=== PATIENT | female | born 1960 | race Caucasian/White ===

== ENCOUNTER 2019-08-28 10:16 | Outpatient (CLI) | payer OTHER, SELFPAY ==
--- NOTE | 2019-08-28 11:15 | NEURO_ITS ---
Patient Number: [id number] Impression: # Complains of paresthesia of right forearm. # Mild right Carpal Tunnel Syndrome. # No ulnar neuropathy. # Normal needle/EMG exam. Nerve Conduction Studies Anti Sensory Summary Table Stim Site NR Peak (ms) P-T Amp (?V) Site1 Site2 Delta-P (ms) Dist (cm) Mj (m/s) Right Median Anti Sensory (2-3nd Digit) Wrist 3.5 47.9 Wrist 2-3nd Digit 3.5 14.0 40 Wrist 3.5 52.7 Wrist 2-3nd Digit 3.5 14.0 40 Right Radial Anti Sensory (Base 1st Digit) Wrist 2.7 17.8 Wrist Base 1st Digit 2.7 0.0 Right Ulnar Anti Sensory (5th Digit) Wrist 2.8 43.3 Wrist 5th Digit 2.8 14.0 50 Motor Summary Table Stim Site NR Onset (ms) O-P Amp (mV) Site1 Site2 Delta-0 (ms) Dist (cm) Mj (m/s) Right Median Motor (Abd Poll Brev) Wrist 3.6 3.2 Elbow Wrist 5.1 27.0 53 Elbow 8.7 1.7 Right Ulnar Motor (Abd Dig Minimi) Wrist 2.6 6.6 A Elbow Wrist 5.2 29.0 56 A Elbow 7.8 5.7 F Wave Studies NR F-Lat (ms) L-R F-Lat (ms) Right Median (Mrkrs) (Abd Poll Brev) 28.01 Right Ulnar (Mrkrs) (Abd Dig Min) 28.50 EMG Side Muscle Nerve Root Ins Act Fibs Amp Dur Recrt Comment Right 1stDorInt Ulnar C8-T1 Nml Nml Nml Nml Nml Right Ext Indicis Radial (Post Int) C7-8 Nml Nml Nml Nml Nml Right Ext Digitorum Radial (Post Int) C7-8 Nml Nml Nml Nml Nml Right BrachioRad Radial C5-6 Nml Nml Nml Nml Nml Right PronatorTeres Median C6-7 Nml Nml Nml Nml Nml Right Abd Poll Brev Median C8-T1 Nml Nml Nml Nml Nml MTDD
== END 2019-08-28 10:17 | disposition home or self-care (01) ==
PROVIDERS: PCP Family Medicine Adolescent Medicine; Visit Provider Family Medicine Adolescent Medicine
DX: G56.01 Carpal tunnel syndrome, right upper limb (principal)
CPT/HCPCS: 95886; 95909

== ENCOUNTER → 2020-04-17 14:17 | Outpatient (CLI) | payer OTHER, SELFPAY ==
--- NOTE | ~2020-04-17 | MM_ITS ---
EXAMINATION: MM screening [facility] BI w maximo HISTORY: Screening mammogram TECHNIQUE: Craniocaudal and mediolateral oblique 3-D tomosynthesis images were obtained and synthetic 2-D images were generated. CAD analysis was submitted and interpreted. COMPARISON: 06/01/2012 diagnostic right mammogram 05/20/2012, 04/29/2011 bilateral digital screening mammogram examinations BREAST PARENCHYMAL COMPOSITION: There are scattered areas of fibroglandular density. FINDINGS: Bilateral circumscribed low-density opacities consistent with intramammary lymph nodes. Scattered bilateral occasional benign calcifications. There is no evidence of suspicious mass, calcif ication, or architectural distortion to suggest malignancy in either breast. There has been no suspic ious interval change. IMPRESSION: 1. No mammographic evidence of malignancy. 2. Recommend routine screening mammography in one year. BI-RADS Category 2: Benign finding(s). Reviewed, dictated and finalized at location B. NEY SUPERVISOR BRICK
--- NOTE | ~2020-04-17 | DEXA_ITS ---
Bone Density Report Name: Jazlyn Willams Age: 59 Sex: Female Ethnicity: White Date of : 1960 Indication: postmenopausal; screening for osteoporosis; height loss; hysterectomy; Referring Provider: DAVID TODD Study: Bone densitometry was performed. Exam Date: April 17, 2020 Accession number: [id number] Bone Density: Region BMD T-score Z-score Classification AP Spine (L2, L3, L4) 1.584 4.6 6.1 Normal Femoral Neck (Left) 0.805 -0.4 0.9 Normal Total Hip (Left) 0.962 0.2 1.2 Normal Femoral Neck (Right) 0.848 0.0 1.3 Normal Total Hip (Right) 0.945 0.0 1.0 Normal Total Hip Mean 0.954 0.1 1.1 Normal World Health Organization criteria for BMD impression classify patients as: Normal (T-score at or above -1.0), Osteopenia (T-score between -1.0 and -2.5), or Osteoporosis (T-score at or below -2.5). 10-year Fracture Risk: FRAX not reported because: All T-scores for Spine Total, Hip Total, Femoral Neck at or above -1.0 Clinical Information Provided by Patient: Has used the following medications: Vitamin D, Calcium Has the following medical conditions: Hysterectomy Patient maximum height was 67 Menopause Age: 53 Drinks caffeinated beverages Onset of menses at age 9 Number of children 3 Impression: The patient has normal bone mass. Discussion: BONE DENSITY IS ABOVE THE MINIMUM DESIRABLE LEVEL AT ALL SKELETAL SITES TESTED. This patient?s bone mineral density is above the minimum desirable level (T-score -1.0 or better) at all sites measured. The patient should follow a healthful lifestyle (good nutrition with adequate calcium and vitamin D, and appropriate weight-bearing exercise). Follow-Up: Consider repeating this study in 5 years or sooner if there is some new clinical indication. Reported by: [facility] on 04/17/2020 3:03:00 PM. Reviewed, dictated and finalized at location [facility]
== END ==
PROVIDERS: PCP Family Medicine Adolescent Medicine; Visit Provider Obstetrics & Gynecology Gynecology
DX: Z12.31 Encounter for screening mammogram for malignant neoplasm of breast (principal); Z78.0 Asymptomatic menopausal state
CPT/HCPCS: 77063; 77067; 77080

== ENCOUNTER → 2020-12-06 01:16 | Outpatient (CLI) | payer OTHER, SELFPAY ==
[2020-12-06 22:45] LABS: SARS-CoV-2 RNA PCR Negative
== END ==
PROVIDERS: PCP Family Medicine Adolescent Medicine; Visit Provider Physician Assistant
DX: R68.89 Other general symptoms and signs (principal); Z20.822 Contact with and (suspected) exposure to COVID-19
CPT/HCPCS: C9803; U0003; U0005

== ENCOUNTER → 2021-04-21 12:02 | Outpatient (CLI) | payer OTHER, SELFPAY ==
--- NOTE | ~2021-04-21 | MM_ITS ---
EXAMINATION: MM screening [facility] BI w maximo HISTORY: Screening TECHNIQUE: Craniocaudal and mediolateral oblique 3-D tomosynthesis images were obtained and synthetic 2-D images were generated. CAD analysis was submitted and interpreted. COMPARISON: Comparison to multiple prior studies sequentially, with oldest reviewed study dated 12/2012. BREAST PARENCHYMAL COMPOSITION: There are scattered areas of fibroglandular density. FINDINGS: There is no evidence of suspicious mass, calcification, or architectural distortion to sugg est malignancy in either breast. There has been no suspicious interval change. IMPRESSION: 1. No mammographic evidence of malignancy. 2. Recommend routine screening mammography in one year. BI-RADS Category 1: Negative Reviewed, dictated and finalized at location A. CHOOL PROGRAM DIRECTOR
== END ==
PROVIDERS: PCP Family Medicine Adolescent Medicine; Visit Provider Obstetrics & Gynecology Gynecology
DX: Z12.31 Encounter for screening mammogram for malignant neoplasm of breast (principal)
CPT/HCPCS: 77063; 77067

== ENCOUNTER 2021-08-27 00:50 | Day surgery (SDC) | payer OTHER, SELFPAY ==
[2021-08-13 15:20] VITALS: BMI 32.0
--- NOTE | 2021-08-14 15:12 | PC.NURSE ---
Pt has a rectal prolapse diagnosed by Dr. Power last February and questioned if she would be able to have the colonoscopy that is scheduled. She states there is no plan for surgery on the rectal prolapse. Addressed pt's concern with Dr. Mejia who states she will be able to proceed with bowel prep and colonoscopy.
--- NOTE | 2021-08-26 15:07 | PM.HPGS ---
History of Present Illness History of Present Illness Consent: Risks, benefits, and alternatives have been discussed and questions answered. Patient agrees to proceed with procedure. Chief complaint: family hx colon polyps Narrative: Jazlyn Willams is a 61 year old female Referred for colon cancer screening. Her mother had colon polyps Review of Systems Review of Systems: All systems reviewed & are unremarkable except as noted in HPI and below PMFSH Past Medical History Medical History Arthritis History of compression fracture of spine Lumbar 2014 Hypothyroid Parkinson's Disease Surgical History Surgical History History of hysterectomy History of lumbar surgery L5/S1 fusion History of tonsillectomy Family History Family History Mother Stomach cancer Diabetes mellitus Heart disease Hypertension Father Diabetes mellitus Hypertension Sibling Diabetes mellitus Social History Social History Smoking status: Never smoker Second hand tobacco smoke exposure: No Alcohol intake: never Substance use: current Substance use type: marijuana Other substance usage details: medical marijuana Living arrangements: with family Gender identity (if verbalized by the patient): Female Sexual Orientation (if Verbalized by the Patient): Straight or Heterosexual Spiritual care concerns: No Agree to blood products: Yes Meds Home Medications and Allergies Home Medications Medication Instructions Recorded Confirmed Type levothyroxine 100 mcg tablet 100 mcg PO DAILY #90 tablet 06/09/21 08/27/21 Rx cholecalciferol (vitamin D3) 25 1,000 unit PO DAILY cap 07/09/21 08/27/21 History mcg (1,000 unit) capsule clobetasol 0.05 % topical cream 1 applic TOPICAL .PRN g 07/09/21 08/27/21 History echinacea purpurea root 400 mg 1,300 mg PO DAILY cap 07/09/21 08/27/21 History capsule multivitamin 1 tablet PO DAILY 07/09/21 08/27/21 History indomethacin 50 mg capsule 50 mg PO TID #270 cap 08/02/21 08/27/21 Rx ropinirole 0.25 mg tablet 0.25 mg PO TID #270 tablet 08/02/21 08/27/21 Rx carbidopa 25 mg-levodopa 250 mg See Rx Instructions .ROUTE 08/03/21 08/27/21 Rx tablet .COMPLEX #540 tablet Allergies Allergy/AdvReac Type Severity Reaction Status Date / Time No Known Allergies Allergy Unknown Verified 08/27/21 06:50 Exam Const: General: alert Orientation/consciousness: patient oriented x3 Resp: Auscultation: clear to auscultation bilaterally Cardio: Rhythm: regular rhythm GI: GI Palp: Yes Soft to palpation and No Tenderness to palpation present (GI) Neuro: General: patient oriented x3 Assessment and Plan Assessment and plan (1) Colon cancer screening: Code(s): Z12.11 - Encounter for screening for malignant neoplasm of colon Status: Acute Assessment and Plan: Colonoscopy with possible biopsy or polypectomy or cautery or injection of substances.
[2021-08-27 06:43] VITALS: BP 175/83; PULSE 89; RESP 18; TEMP 36.3; O2SAT 98; BMI 32.8
[2021-08-27] MEDS: LACTATED RINGERS 1,000 ML 150 ML IV CONT (07:05)
--- NOTE | 2021-08-27 07:44 | WPDANESEPPF ---
Anes - Initial Pre Proc Eval Procedure: Operation Date: 08/27/21 08:00 Proposed Procedures p Screening Colonoscopy - Hugo Mejia MD Date/Time: 08/27/21 07:44 Surgeon: Hugo Mejia MD Pre Op Diagnosis: family hx colon polyps Patient Data Age: 61 Gender: F Height: 1.68 m Weight: 92.2 kg Last Vital Signs Temp 36.3 C L 08/27/21 06:43 Pulse 89 08/27/21 06:43 Resp 18 08/27/21 06:43 BP 175/83 H 08/27/21 06:43 Pulse Ox 98 08/27/21 06:43 Allergies Allergy/AdvReac Type Severity Reaction Status Date / Time No Known Allergies Allergy Unknown Verified 08/27/21 06:50 Home Medications Medication Instructions Recorded Confirmed Type levothyroxine 100 mcg tablet 100 mcg PO DAILY #90 tablet 06/09/21 08/27/21 Rx cholecalciferol (vitamin D3) 25 1,000 unit PO DAILY cap 07/09/21 08/27/21 History mcg (1,000 unit) capsule clobetasol 0.05 % topical cream 1 applic TOPICAL .PRN g 07/09/21 08/27/21 History echinacea purpurea root 400 mg 1,300 mg PO DAILY cap 07/09/21 08/27/21 History capsule multivitamin 1 tablet PO DAILY 07/09/21 08/27/21 History indomethacin 50 mg capsule 50 mg PO TID #270 cap 08/02/21 08/27/21 Rx ropinirole 0.25 mg tablet 0.25 mg PO TID #270 tablet 08/02/21 08/27/21 Rx carbidopa 25 mg-levodopa 250 mg See Rx Instructions .ROUTE 08/03/21 08/27/21 Rx tablet .COMPLEX #540 tablet Patient hx anesthesia problems: none Family hx anesthesia problems: none Results Review: All pre-operative results and documents have been reviewed as part of the pre-operative evaluation. [facility] Past Medical History Medical History Arthritis History of compression fracture of spine Lumbar 2014 Hypothyroid Parkinson's Disease Surgical History Surgical History History of hysterectomy History of lumbar surgery L5/S1 fusion History of tonsillectomy Family History Family History Mother Stomach cancer Diabetes mellitus Heart disease Hypertension Father Diabetes mellitus Hypertension Sibling Diabetes mellitus Social History Social History Smoking status: Never smoker Second hand tobacco smoke exposure: No Alcohol intake: never Substance use: current Substance use type: marijuana Other substance usage details: medical marijuana Living arrangements: with family Gender identity (if verbalized by the patient): Female Sexual Orientation (if Verbalized by the Patient): Straight or Heterosexual Spiritual care concerns: No Agree to blood products: Yes Anes - Eval Final PreProcedure Day of Procedure 08/27/21 07:44 Patient weight: obese Heart: regular rate and rhythm Lungs: clear to auscultation and normal air movement Airway: Mallampati scale class II Neurological: alert and oriented Last oral intake: >/= 8 hours ASA classification: III Emergent: no Anesthetic plan: proceed Anesthesia type and monitoring: general GIVS Results Review: All pre-operative results and documents have been reviewed as part of the pre-operative evaluation. Informed Consent: The patient's anesthetic plan and its attendant risks and benefits were discussed with the patient/family/POA. Questions were solicited and answers provided to the satisfaction of the patient/family/POA.
[2021-08-27 08:12] VITALS: BP 109/58; PULSE 70; RESP 18; O2SAT 97
[2021-08-27 08:22] VITALS: BP 112/64; PULSE 68; RESP 18; O2SAT 100
[2021-08-27 08:32] VITALS: BP 119/73; PULSE 72; RESP 20; O2SAT 100
== END 2021-08-27 08:47 | disposition home or self-care (01) ==
PROVIDERS: PCP Family Medicine Adolescent Medicine; Referring Provider Physician Assistant; Visit Provider Internal Medicine Gastroenterology
PROC: 0DJD8ZZ Inspection of Lower Intestinal Tract, Via Natural or Artificial Opening Endoscopic (ICD-10-PCS; CPT 45378; principal; 2021-08-27 08:00)
DX: Z12.11 Encounter for screening for malignant neoplasm of colon (principal); E03.9 Hypothyroidism, unspecified; G35 Multiple sclerosis; Z98.1 Arthrodesis status; F12.90 Cannabis use, unspecified, uncomplicated; E66.9 Obesity, unspecified; Z68.32 Body mass index [BMI] 32.0-32.9, adult
CPT/HCPCS: 45378; J2704; J7120

== ENCOUNTER 2021-09-28 10:00 | Outpatient (RCR) | payer OTHER, SELFPAY ==
--- NOTE | 2021-08-20 08:55 | PTOPEVAL ---
PHYSICAL THERAPY EVALUATION AND PLAN OF CARE Thank you for referring Jazlyn Willams to [facility].? The patient is scheduled to be seen for therapy? 1-2x/week for 5 weeks. Please review, sign, date and return this plan of care SHERMAN. I agree with and certify that the following plan of care is medically necessary. Referring Physician Date Attending Provider: Garcia Blackwell APN Evaluation Diagnosis low back pain Onset 04/2021 Subjective Information Fell in April 2021 (has Query Text:As Reported By Patient/ Parkinson's) and feels like Family her left leg does not always like to move well. She landed on her right side and since then has been have significantly increased right sided low back pain. She can no longer lie on the right side. She does have a history of kyphoplasty at L1 (2013) and an L5 S1 fusion. She tells me that she has an appt with a neurosurgeon next week to review how her kyphoplasty and fusion are now doing since the fall. Pain starts on the right side and moves over to the left side. Pain is all day. Really painful in the morning. States she cannot stand at the kitchen counter for longer than 5 minutes and she cannot do yard work (gardening). Takes care of her grandchildren and has to take breaks. Self Report Pain Assessment Right Spine, Lumbar Reported Pain Level 10 Pain Frequency Acute,Continuous Lowest Pain Intensity 6 Pain Aggravating Factors Walking,Weight Bearing/ Standing Lumbar Comments generally WFL flexion and rotation with protective movements; very minimal and painful extension Hip Strength Bilateral Hip Flexion Strength 4+ Good + Hip Extension Strength 3 Fair Hip Abduction Strength 3- Fair - Knee Strength Bilateral Knee Flexion Strength 5 Normal Knee Extension Strength 5 Normal Palpation right PSIS posterior with
--- NOTE | 2021-09-24 09:58 | PCPTNOTE ---
Patient called & cancelled scheduled appointment this date due to no reason given.
--- NOTE | 2021-09-28 10:23 | PTOPEVAL ---
PHYSICAL THERAPY PROGRESS REPORT Thank you for referring Jazlyn Willams to [facility].? Holding patient's chart until she consults neurosurgeon. Please review, sign, date and return this plan of care SHERMAN. I agree with and certify that the following plan of care is medically necessary. Referring Physician Date Attending Provider: Garcia Blackwell APN Diagnosis low back pain Onset 04/2021 Subjective Information States that her back pain Query Text:As Reported By Patient/ feels about the same. Does not Family feel like therapy is working. She came today with an order for pelvic floor physical therapy and pelvic floor pain; however, she tells me that there is no pain within the pelvic floor. There is pain at the right PSIS and states that it shoots through to the front. She confirms that it does not wrap around the hip but shoots through the abdomen to the front and feels like a pinching feeling. She feels as though PT has mad her pain and symptoms worse. She is seeing a neurosurgeon on . I think this is a good direction to go with her care at this time. Self Report Pain Assessment Right Spine, Lumbar Reported Pain Level 8 Pain Score Pain Score 8: Self Report Interventions Used Interventions Used By Clinicians Education,Position Change Cervical and Lumbar ROM Lumbar ROM Lumbar Comments generally WFL flexion and rotation with protective movements; very minimal and painful extension Lower Extremity Muscle Strength Testing Hip Strength Bilateral Hip Flexion Strength 4+ Good + Hip Extension Strength 3+ Fair + Hip Abduction Strength 3+ Fair + Knee Strength Bilateral Knee Flexion Strength 5 Normal Knee Extension Strength 5 Normal Palpation Assessment Palpation Palpation right PSIS posterior with right LE long compared to left indicating potential leg length discrepency Gait Assessment Gait Pattern Assessment Other Gait Observations significant right hip drop - cannot determine if this is
--- NOTE | 2021-10-26 14:13 | PCPTNOTE ---
Admitting Provider: Attending Provider: Garcia Blackwell APN Patient:Jazlyn Willams Date of :1960 Patient has not returned for any further treatments since 09/28/2021 and at this visit progress report was written and faxed to referring physician. She has not returned for further visits or communicated about her follow up with neurosurgeon, therefore she will be discharged at this time. Patient?s initial visit was on 08/20/2021 and had a total of 10 visits. Thank you for referring this patient to [facility]. Please review, sign, date and return this discharge summary SHERMAN. I have been updated about the patient's current status and I agree with discharge from the above service at this time. Referring Physician Date
== END 2021-10-27 11:45 | disposition home or self-care (01) ==
LOC: ANHPT 10:00
PROVIDERS: PCP Family Medicine Adolescent Medicine; Visit Provider Nurse Practitioner
DX: M54.50 Low back pain, unspecified (principal)
CPT/HCPCS: 97014; 97110; 97112; 97140; 97162; 97530; G0283

== ENCOUNTER → 2021-10-16 14:10 | Outpatient (CLI) | payer OTHER, SELFPAY ==
--- NOTE | ~2021-10-16 | MR_ITS ---
EXAMINATION: MR lumbar spine wo/w con DATE: 10/16/2021 15:21 INDICATION: Low back pain. Difficulty walking. TECHNIQUE: Magnetic resonance imaging (MRI) of the lumbar spine was performed without and with 18 mL Multihance intravenous contrast. Sequences included sagittal T2-weighted FSE, sagittal T2-weighted FS FSE, and sagittal and axial T1-weighted FSE. Postcontrast sequences included axial T2-weighted FSE, sagittal T1-weighted FSE, and axial and sagittal T1-weighted FS FSE. COMPARISON: Lumbar spine CT dated 03/25/2014 FINDINGS: Evaluation moderately limited by some degree of motion artifact or blurring on the majority of the se quences. 10 degrees upper lumbar levoscoliosis. 4 mm retrolisthesis L2 on L3, 3 mm retrolisthesis L3 on L4, 3 mm retrolisthesis L4 on L5 and 4 mm retrolisthesis L5 on S1. Anterior spinal fusion at L5-S1 with discectomy, interbody device and anterior plate and screw fixation. No definitive solid osseous bridging evident across the disc space. No interval change in a chronic L1 vertebral body burst frac ture with 40% anterior vertebral body height loss and 3 mm retropulsion. Low signal intensity within the vertebral body and extending into the T12-L1 disc space corresponding to methylmethacrylate relat ed to prior vertebroplasty. There is additional absent signal at the L1-L2 disc space which could rep resent either vacuum phenomena or extension of methylmethacrylate from the adjacent L1 vertebral body into the disc space. The latter is suggested by a new step off the inferior margin of the methylmeth acrylate seen on and hip and pelvis radiographs dated 08/04/2021 when compared with the earlier CT. Di fferentiation of methylmethacrylate, gas and bone is however limited on MRI. There is marrow edema an d enhancement at the cephalad aspect of the L2 vertebral body with suggestion of a mild right-sided s uperior endplate compression fracture. Likely degenerative mild enhancement of the soft tissues along the right side of the vertebral body. Severe disc height loss with degenerative endplate changes at L2-L3, L3-L4 and L4-L5. The conus medullaris terminates at L1. There is normal signal in the caudal s santos cord. No abnormally enhancing cord lesions. Paravertebral soft tissues are unremarkable. The fo llowing disc levels are specifically discussed: T12-L1: The disc does not extend beyond the endplate margin. There is mild bilateral facet joint oste oarthritis. There is no neural foraminal stenosis. There is mild central canal stenosis just below le maycol of the disc space due to the retropulsion of the cephalad posterior wall of L2. L1-L2: Disc is mildly bulging, eccentric to the right. On the left there appears be a potential mild retropulsion of the vertebral body. There is mild left and moderate right facet joint osteoarthritis. There is [id number] right and mild left neural foraminal stenosis. There is mild central can al stenosis. L2-L3: Disc extrusion extending from foraminal zone to foraminal zone with disc material extending up to 5 mm caudal to the level of the superior endplate of L3. There is mild left and moderate right fa cet joint osteoarthritis. There is mild right and mild to moderate left neural foraminal stenosis. Th ere is mild to moderate central canal stenosis. L3-L4: Disc extrusion extending from foraminal zone to foraminal zone with disc material extending up to 4 mm caudal to the level of the superior endplate of L4. There is mild right and moderate left fa cet joint osteoarthritis. There is moderate bilateral neural foraminal stenosis. There is mild centra l canal stenosis. L4-L5: Disc is bulging. There is moderate bilateral facet joint osteoarthritis. There is moderate rig ht and moderate to severe left neural foraminal stenosis. There is mild central canal stenosis. L5-S1: Anterior fusion procedure. There is mild right and severe left facet elena
[2021-10-16 14:40] LABS: Estimated Glomerular Filt Rate > 60
== END ==
PROVIDERS: PCP Family Medicine Adolescent Medicine; Visit Provider Neurological Surgery
DX: M47.896 Other spondylosis, lumbar region (principal); S32.011A Stable burst fracture of first lumbar vertebra, initial encounter for closed fracture; X58.XXXA Exposure to other specified factors, initial encounter; Z98.1 Arthrodesis status
CPT/HCPCS: 72158; A9577

== ENCOUNTER 2021-11-30 08:39 | Outpatient (CLI) | payer OTHER, SELFPAY ==
--- NOTE | 2021-11-30 11:00 | NEURO_ITS ---
Impression: # Complains of pain in right hand. # Right ulnar neuropathy across the elbow. # No Carpal Tunnel Syndrome. # No generalized neuropathy. # Normal needle/EMG exam in upper and lower extremities. # Clinical correlation recommended. Nerve Conduction Studies Anti Sensory Summary Table Stim Site NR Peak (ms) P-T Amp (?V) Site1 Site2 Delta-P (ms) Dist (cm) Mj (m/s) Left Median Anti Sensory (2-3nd Digit) Wrist 3.4 71.0 Wrist 2-3nd Digit 3.4 14.0 41 Wrist 3.3 67.9 Wrist 2-3nd Digit 3.4 14.0 41 Right Median Anti Sensory (2-3nd Digit) Wrist 3.4 49.9 Wrist 2-3nd Digit 3.4 14.0 41 Wrist 3.5 50.1 Wrist 2-3nd Digit 3.4 14.0 41 Left Radial Anti Sensory (Base 1st Digit) Wrist 2.2 25.5 Wrist Base 1st Digit 2.2 0.0 Right Radial Anti Sensory (Base 1st Digit) Wrist 2.6 54.0 Wrist Base 1st Digit 2.6 0.0 Left Sup Fibular Anti Sensory (Ant Lat Mall) 14 cm 3.8 20.6 14 cm Ant Lat Mall 3.8 16.0 42 Right Sup Fibular Anti Sensory (Ant Lat Mall) 14 cm 3.0 16.9 14 cm Ant Lat Mall 3.0 16.0 53 Left Sural Anti Sensory (Lat Mall) Calf 3.8 6.6 Calf Lat Mall 3.8 16.0 42 Right Sural Anti Sensory (Lat Mall) Calf 3.2 11.1 Calf Lat Mall 3.2 16.0 50 Left Ulnar Anti Sensory (5th Digit) Wrist 2.8 57.3 Wrist 5th Digit 2.8 14.0 50 Right Ulnar Anti Sensory (5th Digit) Wrist 2.9 51.8 Wrist 5th Digit 2.9 14.0 48 Motor Summary Table Stim Site NR Onset (ms) O-P Amp (mV) Site1 Site2 Delta-0 (ms) Dist (cm) Mj (m/s) Left Median Motor (Abd Poll Brev) Wrist 3.5 5.4 Elbow Wrist 5.3 28.0 53 Elbow 8.8 3.0 Right Median Motor (Abd Poll Brev) Wrist 3.3 4.9 Elbow Wrist 4.8 26.0 54 Elbow 8.1 4.2 Left Peroneal Motor (Vastus Med) Ankle 4.3 1.1 Popit Ankle 8.0 37.0 46 Popit 12.3 0.9 Right Peroneal Motor (Vastus Med) Ankle 4.4 2.3 Popit Ankle 7.9 34.0 43 Popit 12.3 2.1 Left Tibial Motor (Abd Deluca Brev) Ankle 4.6 6.3 Knee Ankle 8.5 40.0 47 Knee 13.1 5.1 Right Tibial Motor (Abd Deluca Brev) Ankle 4.1 1.6 Knee Ankle 8.8 40.0 45 Knee 12.9 2.3 Left Ulnar Motor (Abd Dig Minimi) Wrist 2.7 7.3 A Elbow Wrist 5.4 29.0 54 A Elbow 8.1 6.0 Right Ulnar Motor (Abd Dig Minimi) Wrist 2.4 6.6 A Elbow Wrist 5.8 28.0 48 A Elbow 8.2 4.1 B Elbow Wrist 4.1 21.0 51 B Elbow 6.5 3.3 F Wave Studies NR F-Lat (ms) L-R F-Lat (ms) Left Median (Mrkrs) (Abd Poll Brev) 27.81 0.23 Right Median (Mrkrs) (Abd Poll Brev) 27.58 0.23 Left Peroneal (Mrkrs) (EDB) 54.85 1.62 Right Peroneal (Mrkrs) (EDB) 53.23 1.62 Left Tibial (Mrkrs) (Abd Hallucis) 54.35 0.94 Right Tibial (Mrkrs) (Abd Hallucis) 53.41 0.94 Left Ulnar (Mrkrs) (Abd Dig Min) 28.17 0.47 Right Ulnar (Mrkrs) (Abd Dig Min) 28.63 0.47 EMG Side Muscle Nerve Root Ins Act Fibs Amp Dur Recrt Comment Right 1stDorInt Ulnar C8-T1 Nml Nml Nml Nml Nml Right Ext Indicis Radial (Post Int) C7-8 Nml Nml Nml Nml Nml Right Ext Digitorum Radial (Post Int) C7-8 Nml Nml Nml Nml Nml Right BrachioRad Radial C5-6 Nml Nml Nml Nml Nml Right PronatorTeres Median C6-7 Nml Nml Nml Nml Nml Right Abd Poll Brev Median C8-T1 Nml Nml Nml Nml Nml
== END 2021-11-30 08:40 | disposition home or self-care (01) ==
LOC: ANHNEURO 08:42
PROVIDERS: PCP Family Medicine Adolescent Medicine; Visit Provider Psychiatry & Neurology Neurology
DX: G20 Parkinson's disease (principal); G56.21 Lesion of ulnar nerve, right upper limb
CPT/HCPCS: 95886; 95911; 95913

== ENCOUNTER 2022-04-15 14:31 | Outpatient (CLI) | payer OTHER, SELFPAY ==
--- NOTE | ~2022-04-15 | MR_ITS ---
EXAMINATION: MR lumbar spine wo/w con DATE: 04/15/2022 16:17 INDICATION: Bilateral leg numbness. Chronic back pain. TECHNIQUE: Magnetic resonance imaging (MRI) of the lumbar spine was performed without and with 18 mL MultiHance intravenous contrast. COMPARISON: Lumbar spine MRI 10/16/2021, CT 03/25/2014 FINDINGS: There is 13 degrees levoscoliosis of thoracolumbar spine. There are changes of anterior fus ion procedure at L5-S1 with interbody device and anterior plate and screws. There are burst fractures of L1 and L2 with changes of vertebroplasties. There is methylmethacrylate in the L1-L2 disc. Low si gnal in the T12-L1 disc is likely methylmethacrylate. There is edema-like marrow signal intensity and enhancement in the L1 and L2 vertebral bodies. There is edema-like marrow signal intensity in L2 vielka tebral body on the left. There is severely decreased disc height from L1-L2 through L4 on L5 with end plate remodeling. The distal spinal cord signal intensity is normal. The conus medullaris is at T12-L 1. The following disc levels are specifically discussed: L1-L2: The disc is bulging and has an annular fissure. There is severe bilateral facet joint osteoart hritis. There is moderate right and mild left neural foraminal stenosis. There is mild central canal stenosis. L2-L3: The disc is bulging. There is moderate bilateral facet joint osteoarthritis. There is mild shavonne ateral neural foraminal stenosis. There is mild central canal stenosis. L3-L4: The disc is bulging and has an annular fissure. There is mild right and moderate left facet boris int osteoarthritis. There is mild right and moderate left neural foraminal stenosis. There is mild ce ntral canal stenosis. L4-L5: The disc is bulging. There is moderate right and severe left facet joint osteoarthritis. There is mild right and moderate left neural foraminal stenosis. There is mild central canal stenosis. L5-S1: There is moderate right and severe left facet joint osteoarthritis. There is mild right and mo derate left neural foraminal stenosis. There is mild central canal stenosis. IMPRESSION: 1. Stable chronic burst fracture of L1 with changes of vertebroplasty. 2. Subacute burst fracture of L2 with changes of vertebroplasty with worsening from 10/16/2021. 3. Severe lumbar spondylosis. 4. Thoracolumbar levoscoliosis. Reviewed, dictated and finalized at location A. TY SALES ASSISTANT
== END 2022-04-15 14:32 | disposition home or self-care (01) ==
PROVIDERS: PCP Family Medicine Adolescent Medicine; Visit Provider Neurological Surgery
DX: R20.0 Anesthesia of skin (principal); S32.011A Stable burst fracture of first lumbar vertebra, initial encounter for closed fracture; S32.021A Stable burst fracture of second lumbar vertebra, initial encounter for closed fracture; M43.06 Spondylolysis, lumbar region; M41.85 Other forms of scoliosis, thoracolumbar region
CPT/HCPCS: 72158; A9577

== ENCOUNTER → 2022-04-26 12:46 | Outpatient (CLI) | payer OTHER, SELFPAY ==
--- NOTE | ~2022-04-26 | CT_ITS ---
EXAMINATION: CT abdomen pelvis w con DATE: 04/26/2022 13:21 INDICATION: Right lower quadrant abdominal pain TECHNIQUE: Computed tomography (CT) of the abdomen and pelvis was performed with 100 CC Omnipaque 350 intravenous contrast. Automated exposure control and iterative reconstruction technique were employe d. Exam dose: 931.67 mGy-cm total exam DLP. COMPARISON: None. FINDINGS: The lung bases are clear of infiltrate or consolidation. Normal heart size. No pericardial or pleural effusion. The liver, gallbladder, bile ducts, spleen, pancreas and pancreatic duct appear normal. Normal morphology of the adrenal glands. Very small upper pole right renal cyst. The kidneys are otherwise unremarkable. No urinary tract calc ulus or hydroureteronephrosis. The urinary bladder is unremarkable. Status post hysterectomy. Normal appendix. No evidence of appendicitis. No bowel obstruction, bowel wall thickening, pneumatosi s or intraperitoneal free air. There is abdominal aortic calcification and tortuosity. No intraperitoneal or retroperitoneal or pelv ic mass lesion or adenopathy or ascites. Small fat-containing umbilical hernia. Levoscoliosis of the lumbar spine. Mild compression fracture deformity of T10. Vertebroplasty and burst fractures of L1 and L2. Severe degenerative disc disease throughout the lumbar and lumbosacral spine. Status post anterior surgical fusion at L5-S1. IMPRESSION: Normal appendix Mild compression fracture deformity of T10. Vertebroplasty and burst fractures of L1 and L2. Severe degenerative disc disease throughout the lumbar and lumbosacral spine. Status post anterior surgical fusion at L5-S1. Reviewed, dictated and finalized at Location A. Reviewed, dictated and finalized at location B. AND WASHER
[2022-04-26 13:07] LABS: Estimated Glomerular Filt Rate > 60
== END ==
PROVIDERS: PCP Family Medicine Adolescent Medicine; Visit Provider Family Medicine Adolescent Medicine
DX: S22.070A Wedge compression fracture of T9-T10 vertebra, initial encounter for closed fracture (principal); S32.011A Stable burst fracture of first lumbar vertebra, initial encounter for closed fracture; S32.021A Stable burst fracture of second lumbar vertebra, initial encounter for closed fracture; X58.XXXA Exposure to other specified factors, initial encounter; M51.36 Other intervertebral disc degeneration, lumbar region; Z98.1 Arthrodesis status
CPT/HCPCS: 74177; Q9967

== ENCOUNTER → 2022-05-21 15:48 | Outpatient (CLI) | payer OTHER, SELFPAY ==
--- NOTE | ~2022-05-21 | MM_ITS ---
EXAMINATION: MM screening [facility] BI w maximo HISTORY: Screening mammogram TECHNIQUE: Craniocaudal and mediolateral oblique 3-D tomosynthesis images were obtained and synthetic 2-D images were generated. CAD analysis was submitted and interpreted. COMPARISON: 04/21/2021, 04/17/2020 bilateral screening mammogram examinations BREAST PARENCHYMAL COMPOSITION: There are scattered areas of fibroglandular density. FINDINGS: There is no evidence of suspicious mass, calcification, or architectural distortion to sugg est malignancy in either breast. There has been no suspicious interval change. IMPRESSION: 1. No mammographic evidence of malignancy. 2. Recommend routine screening mammography in one year. BI-RADS Category 1: Negative Reviewed, dictated and finalized at location A. E SERVICE TECHNICIAN
== END ==
PROVIDERS: PCP Family Medicine Adolescent Medicine; Visit Provider Obstetrics & Gynecology Gynecology
DX: Z12.31 Encounter for screening mammogram for malignant neoplasm of breast (principal)
CPT/HCPCS: 77063; 77067

== ENCOUNTER → 2023-01-06 14:16 | Outpatient (CLI) | payer OTHER, SELFPAY ==
--- NOTE | ~2023-01-06 | XR_ITS ---
XR shoulder LT min 2V DATE: 01/06/2023 14:46 INDICATION: Left shoulder pain and limited abduction following a fall 6 days ago. TECHNIQUE: 5 views COMPARISON: None FINDINGS: There is mild degenerative spurring at the left acromioclavicular joint. No fracture or dislocation, periosteal reaction or bone destruction or abnormal soft tissue calcifica tion of the left shoulder is detected. IMPRESSION: Mild degenerative spurring of the left acromioclavicular joint Reviewed, dictated and finalized at location A.
== END ==
PROVIDERS: PCP Nurse Practitioner Family; Visit Provider Nurse Practitioner Family
DX: M25.512 Pain in left shoulder (principal)
CPT/HCPCS: 73030

== ENCOUNTER 2023-03-10 11:04 | Outpatient (CLI) | payer SELFPAY ==
[2023-03-11 13:02] LABS: Kit Draw Collected
== END 2023-03-10 11:05 | disposition home or self-care (01) ==
PROVIDERS: PCP Nurse Practitioner Family
DX: E07.9 Disorder of thyroid, unspecified (principal); M04.9 Autoinflammatory syndrome, unspecified
CPT/HCPCS: 36415

== ENCOUNTER → 2023-05-24 13:27 | Outpatient (CLI) | payer OTHER, SELFPAY ==
--- NOTE | ~2023-05-24 | MM_ITS ---
EXAMINATION: MM screening [facility] BI w maximo HISTORY: Screening mammogram TECHNIQUE: Craniocaudal and mediolateral oblique 3-D tomosynthesis images were obtained and synthetic 2-D images were generated. CAD analysis was submitted and interpreted. COMPARISON: 05/21/2022, 04/21/2021, 04/17/2020 BREAST PARENCHYMAL COMPOSITION: There are scattered areas of fibroglandular density. FINDINGS: No suspicious mass, calcification, or architectural distortion are identified in either mark ast to suggest malignancy. There has been no suspicious interval change. IMPRESSION: 1. No mammographic evidence of malignancy. 2. Recommend routine screening mammography in one year. BI-RADS Category 1: Negative Reviewed, dictated and finalized at location A. ER HELPER DISTILLERY
== END ==
PROVIDERS: PCP Family Medicine Adolescent Medicine; Visit Provider Obstetrics & Gynecology Gynecology
DX: Z12.31 Encounter for screening mammogram for malignant neoplasm of breast (principal)
CPT/HCPCS: 77063; 77067

== ENCOUNTER 2023-07-26 11:45 | Outpatient (CLI) | payer OTHER, SELFPAY ==
[2023-07-27 17:43] LABS: H pylori, Urea Breath NOT DETECTED (NOT DETECTED)
== END 2023-07-26 11:46 | disposition home or self-care (01) ==
LOC: ANHLAB 11:46
PROVIDERS: PCP Family Medicine Adolescent Medicine; Visit Provider Nurse Practitioner Family
DX: A04.8 Other specified bacterial intestinal infections (principal)
CPT/HCPCS: 83013

== ENCOUNTER 2023-08-08 13:30 | Outpatient (RCR) | payer OTHER, SELFPAY ==
--- NOTE | 2023-07-25 15:25 | STOPEVAL1 ---
Assessment and note entered by Iraida Mejia CRM SPECIALIST Evaluation Information Assessment Status Evaluation Reported Pain Level Pain Score 0: Self Report Assessment ST Clinical Summary BEDSIDE SWALLOW EVALUATION The patient reports a history of Parkinson's disease since around 2014 with complaints of swallowing difficulty. She reports difficulty with swallowing her pills but not necessarily difficulty with swallowing food or liquid, noticing it more in the past six months since an incident when a magnesium pill became stuck in her throat, causing her to cough and feel like she needed to call 911 to assist. She then reported that one last sip of water freed the pill to continue into the esophagus and no further action was needed. Patient also reported that she knows her voice is softer than it used to be. She reported that her has difficulty hearing her over any noise such as the television, but also reported that he needs hearing aids. This may be true and patient does admit to a soft voice, however many patients with Parkinson's will report that the issue is not with their own voice but that the spouse/partner needs hearing aids. Today the patient consumed water per cup and per straw using natural head flexion without therapist instruction; she stated she already had figured out that a chin tuck can assist with smoother swallowing. Patient demonstrated a soft, breathy vocal quality which she described as being hoarse due to mucous. Patient will be seen twice weekly for 8 visits to address safe swallowing techniques, swallowing strengthening exercises to assist with improved ability to safely swallow oral medications, and exercises to improve vocal loudness and quality in order for to be able to hear patient from across the room and/or in noisy environment. Results and plan of care were discussed with the patient who voiced agreement. She was instructed in abnormal/normal swallowing skills, the proper use of head flexion, and hard, effortful swallow using chin tuck against resistance to improve the strength of the swallow. She voiced understanding of initial home progr
--- NOTE | 2023-08-08 14:35 | STOPDC ---
Assessment and note entered by STACEY Nascimento Evaluation Information Assessment Status Discharge Reported Pain Level Pain Score 0: Self Report Pain Score 0: Self Report Assessment ST Clinical Summary TREATMENT SUMMARY AND DISCHARGE SUMMARY Patient was seen for an initial evaluation and three treatment sessions focusing on instruction for safe swallowing techniques, swallowing strengthening exercises, and for exercises to improve vocal loudness in treatment exercises and functional situations. Patient voiced and demonstrated good understanding of home exercise program and completed it throughout the week; she voices good recall of using increased vocal loudness when speaking with and denies any recent difficulty swallowing. Patient completed exercises 10 repetitions with good strength and loudness. Additionally, she completed speech exercises with adequate loudness face to face, 5 feet away, with therapist back turned to the patient, and when speaking in open-ended comments over loud music. Patient is discharged with goals achieved. Home exercise program is in place and no further Speech Therapy is indicated. Plan of Care ST Services Indicated Yes
== END 2023-08-08 16:02 | disposition home or self-care (01) ==
LOC: ANHST 13:30
PROVIDERS: PCP Family Medicine Adolescent Medicine; Visit Provider Student in an Organized Health Care Education/Training Program
DX: R13.10 Dysphagia, unspecified (principal); G20.C Parkinsonism, unspecified
CPT/HCPCS: 92507; 92526; 92610

== ENCOUNTER 2023-08-15 08:46 | Outpatient (CLI) | payer OTHER, SELFPAY ==
--- NOTE | ~2023-08-15 | CT_ITS ---
CT ANGIOGRAM NECK AND HEAD History: Left frontal headache. Technique: Axial noncontrast imaging of the brain was performed. Serial spiral axial images through t he head and neck were then obtained during arterial phase IV injection of 100 cc of Omnipaque 350. 3- D postprocessing and MIP images were then reconstructed on the remote workstation. Dose reduction jerry hnique was used on this scan by utilizing automated exposure control and iterative reconstruction jerry hnique. The dose-length product (DLP) was 2178.17 mGy-cm. CTA neck findings: Bilateral common carotid, internal carotid, and external carotid arteries are pro bably patent. There is motion artifact of the proximal internal carotid artery regions, which was pawan luation, but again no evidence for stenosis or occlusion. Bilateral vertebral arteries are patent. Th e proximal right internal carotid artery demonstrates 0% stenosis relative to the normal distal arter y lumen diameter. The proximal left internal carotid artery demonstrates 0% stenosis relative to the normal distal artery lumen diameter. CTA head findings: Distal vertebral, basilar artery, posterior cerebral arteries are patent. Distal i nternal carotid arteries, middle cerebral arteries, and anterior cerebral arteries are patent. No lar ge vessel occlusion. No stenosis or aneurysm. Axial noncontrast imaging of the brain is unremarkable. No acute infarct, intracranial hemorrhage, ma ss lesion. No mass effect or midline shift. Wills-white differentiation intact. Ventricles and subarac hnoid spaces are unremarkable. Paranasal sinuses and mastoid air cells are clear. Impression: No significant abnormality identified. Reviewed, dictated and finalized at [facility]. Impression: No significant abnormality identified.
--- NOTE | ~2023-08-15 | MR_ITS ---
EXAMINATION: MR brain/brain stem wo con DATE: 08/15/2023 09:51 INDICATION: Parkinsonism. Headache. TECHNIQUE: Magnetic resonance imaging (MRI) of the brain and brainstem was performed without intraven ous contrast. COMPARISON: None. FINDINGS: There is no intracranial hemorrhage, acute infarction, or abnormal intracranial mass lesion . The ventricles are normal in size. There is mucosal thickening in the paranasal sinuses. The orbits are normal. The mastoid air cells are normal. IMPRESSION: 1. Normal brain. Reviewed, dictated and finalized at location A. IMPRESSION: 1. Normal brain.
[2023-08-15 10:04] LABS: Estimated Glomerular Filt Rate > 60
== END 2023-08-15 08:47 | disposition home or self-care (01) ==
PROVIDERS: PCP Family Medicine Adolescent Medicine; Visit Provider Student in an Organized Health Care Education/Training Program
DX: R51.9 Headache, unspecified (principal); G20.A1 Parkinson's disease without dyskinesia, without mention of fluctuations
CPT/HCPCS: 70496; 70498; 70551; Q9967

== ENCOUNTER 2023-09-06 13:14 | Outpatient (CLI) | payer OTHER, SELFPAY ==
--- NOTE | ~2023-09-06 | DEXA_ITS ---
Bone Density Report Name: YAW RIDDLE Age: 63 Sex: Female Ethnicity: White Date of : 1960 Indication: postmenopausal; screening for osteoporosis; height loss; prior fracture; hysterectomy; Referring Provider: DAVID TODD Study: Bone densitometry was performed. Exam Date: September 06, 2023 Accession number: [id number] Bone Density: Region BMD T-score Z-score Classification AP Spine (L3, L4) 1.393 2.7 4.5 Normal Femoral Neck (Left) 0.778 -0.6 0.8 Normal Total Hip (Left) 0.919 -0.2 1.0 Normal Femoral Neck (Right) 0.835 -0.1 1.3 Normal Total Hip (Right) 0.884 -0.5 0.7 Normal Total Hip Mean 0.902 -0.4 0.9 Normal World Health Organization criteria for BMD impression classify patients as: Normal (T-score at or above -1.0), Osteopenia (T-score between -1.0 and -2.5), or Osteoporosis (T-score at or below -2.5). 10-year Fracture Risk: FRAX not reported because: All T-scores for Spine Total, Hip Total, Femoral Neck at or above -1.0 Prior hip or vertebral fracture Previous Exams: Region Exam Age BMD T-score BMD Change BMD Change Date g/cm2 vs Baseline vs Previous AP Spine(L3, L4) 09/06/2023 63 1.393 2.7 -0.165* -0.165* 04/17/2020 59 1.557 4.1 Total Hip(Left) 09/06/2023 63 0.919 -0.2 -0.042* -0.042* 04/17/2020 59 0.962 0.2 Total Hip(Right) 09/06/2023 63 0.884 -0.5 -0.060* -0.060* 04/17/2020 59 0.945 0.0 *Denotes significance at 95% confidence level, LSC for AP Spine = 0.022 g/cm2, LSC for Total Hip = 0.027 g/cm2 Clinical Information Provided by Patient: Have had a previous hip or vertebral fracture Has had a low trauma fracture Has used the following medications: Vitamin D Has the following medical conditions: Hysterectomy Patient maximum height was 67 Menopause Age: 53 Does not regularly consume dairy products Drinks caffeinated beverages Onset of menses at age 9 Number of children 3 Impression: The patient has normal bone mass. The patient has risk factors, including: previous fracture. The BMD for the AP Spine(L3, L4) decreased, changing by -0.165 since the last DXA exam. The BMD for the Total Hip(Left) decreased, changing by -0.042 since the last DXA exam. The BMD for the Total Hip(Right) decreased, changing by -0.060 since the last DXA exam. Discussion: INCREASED RISK OF FRACTURE DUE TO HISTORY OF FRACTURE. The patient's previous fracture puts the patient at high risk of a future fracture. In untreated patients, the risk of osteoporotic fracture
== END 2023-09-06 13:15 ==
LOC: MICIMG 13:14
PROVIDERS: PCP Family Medicine Adolescent Medicine; Visit Provider Obstetrics & Gynecology Gynecology
DX: Z13.820 Encounter for screening for osteoporosis (principal); Z78.0 Asymptomatic menopausal state
CPT/HCPCS: 77080

== ENCOUNTER 2023-10-10 08:54 | Outpatient (CLI) | payer OTHER, SELFPAY ==
--- NOTE | ~2023-10-10 | MR_ITS ---
EXAMINATION: MR lumbar spine wo con DATE: 10/10/2023 09:58 INDICATION: Lumbar radicular pain. TECHNIQUE: Magnetic resonance imaging (MRI) of the lumbar spine was performed without intravenous con trast. COMPARISON: Lumbar spine MRI 04/15/2022 FINDINGS: There is 12 degrees levoscoliosis of thoracolumbar spine. There is 3 mm retrolisthesis of L 2 on L3, L3 on L4, and L4 on L5. There are changes of anterior fusion procedure L5-S1 with interbody devices and anterior plate and screws. There are chronic burst fractures of L1 and L2 with changes of vertebroplasties. There is severely decreased disc height from L1-L2 through L4-L5. There is fluid i n the disc at L1-L2. The distal spinal cord signal intensity is normal. The conus medullaris is at L1 . The following disc levels are specifically discussed: L1-L2: The disc is bulging and has an annular fissure. There is severe bilateral facet joint osteoart hritis. There is moderate right and mild left neural foraminal stenosis. There is mild central canal stenosis. L2-L3: The disc is bulging and has an annular fissure. There is severe bilateral facet joint osteoart hritis. There is mild bilateral neural foraminal stenosis. There is mild central canal stenosis. L3-L4: The disc is bulging and has an annular fissure. There is mild right and severe left facet join t osteoarthritis. There is mild bilateral neural foraminal stenosis. There is mild central canal sten osis. L4-L5: The disc is bulging and has an annular fissure. There is mild right and severe left facet join t osteoarthritis. There is mild right and moderate left neural foraminal stenosis. There is mild cent ral canal stenosis. L5-S1: There is moderate severe left facet joint osteoarthritis. There is mild right and moderate lef t neural foraminal stenosis. There is mild central canal stenosis. IMPRESSION: 1. Severe lumbar spondylosis, stable from 04/15/2022. 2. Anterior fusion procedure at L5-S1. 3. Thoracolumbar levoscoliosis. Reviewed, dictated and finalized at location A.
--- NOTE | ~2023-10-10 | MR_ITS ---
Procedure: MR thoracic spine wo con Ordering provider: Sabina Felipe, BECCA History: . Age related osteoporosis . Comparison: None. Technique: MRI thoracic spine without contrast. FINDINGS: SPINAL CORD: Normal. VERTEBRAL BODIES: Loss of volume of C5 and compression fracture of L1. Normal height and alignment of the thoracic spine. No compression fracture. Multiple T2 and T1 bright signal areas with maximum veronica nges involving T9 and T11. These may represent hemangiomas but metastatic lesions cannot be excluded. Further evaluation advised. DISK SPACES: Normal. STENOSIS: None. PARASPINOUS SOFT TISSUES: Normal. IMPRESSION: Compression fracture of C5 and L1 which are most likely chronic. Multiple T1 and T2 hyperintense signal areas with maximum changes in T9 and T11 which may represent h emangiomas. Metastatic lesions cannot be excluded. Clinical correlation and further evaluation advise d.. Reviewed, dictated and finalized at location A. IMPRESSION: Compression fracture of C5 and L1 which are most likely chronic. Multiple T1 and T2 hyperintense signal areas with maximum changes in T9 and T11 which may represent hemangiomas. Metastatic lesions cannot be excluded. Clinic al correlation and further evaluation advised..
== END 2023-10-10 08:55 ==
PROVIDERS: PCP Family Medicine Adolescent Medicine; Visit Provider Physician Assistant
DX: M80.08XA Age-related osteoporosis with current pathological fracture, vertebra(e), initial encounter for fracture (principal); M47.26 Other spondylosis with radiculopathy, lumbar region; Z98.1 Arthrodesis status
CPT/HCPCS: 72146; 72148

== ENCOUNTER 2024-05-28 13:31 | Outpatient (CLI) | payer MEDICARE, OTHER, SELFPAY ==
--- NOTE | ~2024-05-28 | MM_ITS ---
EXAMINATION: MM screening [facility] BI w maximo HISTORY: Screening TECHNIQUE: Craniocaudal and mediolateral oblique 3-D tomosynthesis images were obtained and synthetic 2-D images were generated. CAD analysis was submitted and interpreted. COMPARISON: Comparison to multiple prior studies sequentially, with oldest reviewed study dated 10/2020. BREAST PARENCHYMAL COMPOSITION: Not dense: There are scattered areas of fibroglandular density. FINDINGS: There is no evidence of suspicious mass, calcification, or architectural distortion to sugg est malignancy in either breast. There has been no suspicious interval change. IMPRESSION: 1. No mammographic evidence of malignancy. 2. Recommend routine screening mammography in one year. BI-RADS Category 1: Negative Reviewed, dictated and finalized at location B. BASE OPERATOR
== END 2024-05-28 13:32 | disposition home or self-care (01) ==
LOC: MICIMG 13:33
PROVIDERS: PCP Family Medicine Adolescent Medicine; Visit Provider Obstetrics & Gynecology Gynecology
DX: Z12.31 Encounter for screening mammogram for malignant neoplasm of breast (principal)
CPT/HCPCS: 77063; 77067

== ENCOUNTER 2024-11-21 09:39 | Outpatient (CLI) | payer MEDICARE, SELFPAY ==
--- OUTSIDE RECORDS SUMMARY | 2024-11-21 09:45 | XMS_ITS | Clinical Summary ---
Author Organization [facility] Address [address] [place] [address] Care Team Providers Care Gate Operator Name Role Phone Unavailable Primary Care Provider Unavailabl e Social History Tobacco Use Types Packs/Day Years Used Date Smoking Tobacco: Never Assessed Comments Unknown Sex and Gender Information Value Date Recorded Sex Assigned at Not on file Legal Sex Female 11:06 AM STORE HAND Gender Identity Not on file Sexual Orientation Not on file Plan of Treatment Health Maintenance Due Date Last Done Comments Hepatitis C Virus (HCV) Screening 1960 TdaP Immunization 1960 Pap Smear 1980 Cervical Cancer Screening (CCS) 1989 HPV/Cotest 1989 Cologuard 2004 Colonoscopy 2004 Colorectal Cancer Screening 2004 Immunochemical Fecal Occult Blood 2004 Pneumococcal Immunization (5 0+ years) (1 of 1 - PCV) 2009 Zoster Immunization (1 of 2) 2009 SARS-COV-2 Immunization ( - season) 2023 Influenza Immunization (#1) 2024 Respiratory Syncytial Virus (RSV) Immunization (Adult) (1 - 1-dose 75+ series) 2034 Hepatitis B Immunization Aged Out No longer eligible based on patient's age to complete this topic Human Papillomavirus (HPV) Immunization Aged Out No longer eligible b ased on patient's age to complete this topic Meningococcal Immunization (ACWY) Aged Out No longer eligible based on patient's age to complete this topic Rotavirus Immunization Aged Out No lo nger eligible based on patient's age to complete this topic
--- OUTSIDE RECORDS SUMMARY | 2024-11-21 09:45 | XMS_ITS | Encounter Summary ---
Author Organization [facility] Address [facility] [place] [address] Care Team Providers Care Customer Advocacy Manager Name Role Phone Robby Burrows MD Primary Care Provider [phone] Encounter Details Date Type Department Care Team (Latest Contact Info) Description 02/14/2018 Abstract [facility] , Antonia Da Silva MD Social History Tobacco Use Types Packs/Day Years Used Date Smoking Tobacco: Never Assessed Comments Unknown Sex and Gender Information Value Date Recorded Sex Assigned at Female 03/29/2022 9:03 PM TENNIS NET MAKER Legal Sex Female 8:31 PM CDT Gender Identity Female 03/29/2022 9:03 PM TENNIS NET MAKER Sexual Orientation Straight 03/29/2022 9: 03 PM TENNIS NET MAKER documented as of this encounter Plan of Treatment Not on file documented as of this encounter Visit Diagnoses Not on filedocumented in this encounter Care Teams Customer Advocacy Manager Relationship Specialty Start Date End Date Robby Burrows MD [address] [place] [id number] PCP - General 07/04/13 documented as of this encounter
--- OUTSIDE RECORDS SUMMARY | 2024-11-21 09:45 | XMS_ITS | Encounter Summary ---
Author Organization [facility] Address [address] [place] [address] Phone Care Team Providers Care Automatic Drilling Machine Operator Name Role Phone Robby Burrows MD Primary Care Prov ider Otis Méndez MD Unavailable [phone] Encounter Details Date Type Department Care Team (Late st Contact Info) Description 09/06/2023 Orders Only [facility] Scanning, Provider Social History Tobacco Use Types Packs/Day Years Used Date Smoking Tobacco: Never Smokeless Tobacco: Never Alcohol Use Standard Drinks/Week Comments No 0 (1 standard drink = 0.6 oz pur e alcohol) Comments Unknown Sex and Gender Information Value Date Recorded Sex Assigned at Not on file Legal Sex Female 10:21 AM PRECISION AGRICULTURE SPECIALIST Gender Identity Not on file Sexual Orientation Not on file 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 Not on file Not on file Not on file documented as of this encounter Plan of Treatment Not on file documented as of this encounter Procedures Procedure Name Priority Date/Time Associated Diagnosis Comments SCAN - RADIOLOGY/IMAGING 09/06/2023 documented in this encounter Results * SCAN - RADIOLOGY/IMAGING (09/06/2023) Anatomical Region Laterality Modality Other us Provider Scanning Final Result documented in this encounter Visit Diagnoses Not on filedocumented in this encounter Care Teams Automatic Drilling Machine Operator Relationship Specialty Start Date End Date Robby Burrows MD [address] [place] [address] PCP - General Family Medicine 12/05/17 Otis Méndez MD [address] [address] Referring Physician Neurology 09/24/24 documented as of this encounter
--- OUTSIDE RECORDS SUMMARY | 2024-11-21 09:45 | XMS_ITS | Encounter Summary ---
Author Organization [facility] Healthcare Address [address] [place] [address] Care Team Providers Care Entry Level Finance Name Role Phone Robby Burrows MD Primary Care Prov ider Otis Méndez MD Unavailable [phone] Encounter Details Date Type Department Care Team (Late st Contact Info) Description 10/16/2024 Results Follow-Up [facility] Cardiology [address] [facility] [address] [place] [id number] John Morrissey MD [address] [facility] [place] [address] [place] [address] [place] MPI SPECT (Rest and/or Stress) Multiple Studies Social History Tobacco Use Types Packs/Day Years Used Date Smoking Tobacco: Never Smokeless Tobacco: Never Alcohol Use Standard Drinks/Week Comments No 0 (1 standard drink = 0.6 oz pur e alcohol) Comments Unknown Sex and Gender Information Value Date Recorded Sex Assigned at Not on file Legal Sex Female 10:21 AM HELP DESK AGENT Gender Identity Not on file Sexual Orientation Not on file 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
--- OUTSIDE RECORDS SUMMARY | 2024-11-21 09:45 | XMS_ITS | Clinical Summary ---
Author Organization [facility] Address [facility] [place] [address] Care Team Providers Care Sales Representative Leather Goods Name Role Phone Robby Burrows MD Primary Care Prov ider Otis Méndez MD Unavailable [phone] Allergies No known active allergies Medications indomethacin (INDOCIN) 50 mg capsule Take 1 capsule (50 mg total) by mouth 3 (three) times a day Active cholecalciferol 25 mcg (1,000 unit) tablet Take 1 tablet (1,000 Units total) by mouth daily Active cyanocobalamin (Vitamin B-12) 1,000 mcg tablet Take 1 tablet (1,000 mcg total) by mouth daily Active gabapentin (NEURONTIN) 300 mg capsule 4 Active aspirin 81 mg enteric coated tablet Take 1 tablet (81 mg total) by mouth daily Active multivitamin tabletIndication s:Vitamin Deficiency Prevention Take 1 tablet by mouth Active UNABLE TO FIND Take 600 each by mouth daily Med Name: Calcium Daily Active ALPRAZolam (XANAX) 0.5 mg tablet TAKE 1 TABLET BY MOUTH 30 MINUTES BEFORE MRI FOR 1 DAY 4 Active docosahexaenoic acid/epa (FISH OIL ORAL) Take by mouth Active clobetasoL (TEMOVATE) 0.05 % cream Apply topically as needed Active Forteo 20 mcg/dose (600mcg/2.4mL) injectionIndicat ions:Age-related osteoporosis without current pathological fracture Inject 0.08 mL (20 mcg total) under the skin daily 2.4 mL 11 5 026 Active teriparatide (FORTEO) 20 mcg/dose (600mcg/2.4mL) injectionIndicat ions:Age-related osteoporosis without current pathological fracture Inject 0.08 mL (20 mcg total) under the skin daily 2.4 mL 11 5 026 Active pen needle, diabetic 31 gauge x 06/24 needleIndication s:Age-related osteoporosis without current pathological fracture USE DAILY WITH TERIPARATIDE PEN 100 each 1 5 Active levothyroxine (SYNTHROID) 88 mcg tablet Take 1 tablet (88 mcg total) by mouth appraisal specialist before breakfast 5 Active calcium carbonate 1,000 mg (400 mg elemental) tablet,chewable 600 mg Acti ve carbidopa-levodo pa-entacapone (STALEVO) 37.5-150-200 mg per tablet Take 1 tablet by mouth 3 (three) times a day Has not started yet 90 tablet 11 5 026 Active carbidopa-levodo pa (SINEMET) 25-100 mg per tabletIndication s:Parkinsonism Take 1.5 tablets by mouth 3 (three) times a day May take 1 extra dose as needed 430 tablet 3 5 Active Active Problems Problem Noted Date Diagnosed Date Orthostasis 09/13/2024 Declining mobility 12/16/2023 Hypothyroidism 02/18/2023 Atypical chest pain 02/18/2023 SOB (shortness of breath) 02/18/2023 Paroxysmal SVT (supraventricular tachycardia) Palpitations 02/18/2023 Lipid screening 02/18/2023 Tachycardia, unspecified 02/18/2023 Back pain 03/29/2022 Parkinson disease 03/14/2018 Assessment & Plan (09/24/2024 9:19 AM CDT): She had stage 3 parkinsonism characterized by asymmetric bradykinesia, resting tremor and rigidity as well as a history of postural instability with good response to levodopa. As such the most likely diagnosis was idiopathic Parkinson disease. Indeed, she had no atypical features including early cognitive problems, eye movement abnormalities or severe autonomic problems. She currently took carbidopa/levodopa 25/100 1.5 tabs TID but was bothered by wearing off as well as some dyskinesias. She was just prescribed entacapone along with the levodopa as Stalevo 150 that she has not started yet. She will start this and may note more dyskinesia as the entacapone will increase the peak and duration of levodopa. If she has dyskinesia that is bothersome I would recommend an amantadine titration. I would start with 100 mg in the morning for 1 week, then 100 mg in the morning and noon for 1 week,then 100 mg morning, noon and 4 pm. We discussed the potential of fatigue as well as vivid dreaming with amantadine. If this does not work, I would start amantadine CR for her.. She is likely a good candidate for both FC/FL pump and bilateral STN or GPI DBS, but we will wait to see how the medication adjustments go. She had some impaired mood especially in the OFF states. She is going to need an antidepressant at some point, but since we are making changes to levodopa I would not do this now. For sleep she can retry melatonin up to 20 mg at bedtime. She did try IR levodopa but had more trouble sleeping. Should this not work I would try either mirtazapine or trazodone to help with sleep and mood. She needs physical therapy and speech therapy. Her back pain may reduce her ability to participate in PT at this point. She is going back to see her surgeon to discuss scoliosis surgery. Certainly, dyskinesia can impact recovery but her pain is also impacting her PD. If they feel she is a candidate for surgery I would not hold back due to the PD. Assessment & Plan (03/14/2018 4:46 PM HYPOID GEAR GENERATOR): - La Willams is a 57 y.o. female with a history of internal tremor for 4 years (onset in 2013), a diagnosis of Parkinson's disease, and variation of symptoms accompanying carbidopa/levodopa doses. She is currently bothered by headache and fatigue for 1-1.5 hours after levodopa doses and by internal tremor 3.5 hrs after each levodopa dose. - The examination revealed minimal asymmetric parkinsonism with mild L face hypomimia (limited to lower rise of L zygomaticus during forced smiling), mild hypokinesia of L shoulder during shrug, mild symmetric rigidity, and symmetric hypokinesia on Tracy. The motor UPDRS score was 9. - The history of symptoms and the wearing off, along with the mild but consistently patterned exam findings, indeed support a diagnosis of Parkinson's disease. The internal tremor that returns 3 hours after a levodopa dose is suggestive of wearing off episodes, but the fact that it disappears in the evening even without taking a levodopa dose indicates that this is not a true wearing off symptom but rather a manifestation of the transition of levodopa to higher to lower levels. The fact that she has no sleep disruption and does not feel slow and stiff before the first morning dose are puzzling features, which suggest that either 1) she does have a preserved long-duration response to levodopa, and the transient inner shaking is not a wearing off symptom, or that she does not have typical Parkinson's disease. - I would at first treat the situation as reflecting: peak-level levodopa excess after each dose, causing fatigue and headache; transitional re-emergence of PD symptoms (inner tremor) after 3.5 hours after each dose, due to changing levodopa levels. Therefore I would first try halving the doses and doubling their frequency. The pattern of symptom changes that results from this new schedule will hopefully better inform on the nature of the problems and suggest how to make further changes if any are needed. - I warned her that she may feel worse on the new schedule, and if this happens she can return to the current schedule at any time. However, I would like to hear what happens on the new schedule, even if she does not like it, as this information will guide the next change to try. PLAN (phrased as addressed to the patient): - Change carbidopa/levodopa 25/250 tabs to 1/2 tab 6 times a day at [id number]-3pm-5pm - Call in 1 month to report whether you still have headaches after a dose and internal shaking before the next dose - Continue seeing Dr. Barajas and follow his suggestions on future changes to the schedule. If there are any questions, call my office for further suggestions. - See me in a year to review how things have been going. Vitamin D deficiency disease 12/29/2012 Osteoporosis 12/26/2012 Osteopenia 12/01/2012 Encounters Date Type Department Care Team Description 11/12/2024 Orders Only [facility] Movement Disorders [address] [place] [phone] Shantelle Boyer MD 10/23/2024 Documentation [facility] Movement Disorders [address] [place] [phone] Mariah Bass CMA 10/23/2024 Telephone [facility] Movement Disorders [address] [place] [phone] Mariah Bass CMA 10/16/2024 9:00 AM CDT Ancillary Procedure [facility] Medical Group Cardiology at [address] [place] [address] Atypical chest pain 10/16/2024 Results Follow-Up [facility] Medical Group Cardiology [address] [place] [address] [place] [phone] Louis Echavarria MD NM MPI SPECT (Rest and/or Stress) Multiple Studies 10/03/2024 Telephone [facility] Movement Disorders [address] [place] [phone] Mariah Bass CMA 09/26/2024 Documentation [facility] Movement Disorders [address] [place] [phone] Mariah Bass CMA 09/25/[address] [facility] Home Care Services [address] [place] [address] [address] [place] [phone] Gabreille Mandujano RN 09/24/2024 9:00 AM CDT Clinical Support [facility] [address] [place] [phone] Parkinson's disease, unspecified whether dyskinesia present, unspecified whether manifestations fluctuate ([facility]) 09/24/2024 8:00 AM CDT Office Visit [facility] Movement [facility] [address] [place] [phone] Shantelle Boyer MD Parkinson's disease with dyskinesia and fluctuating manifestations (HCC) (Primary Dx) 09/24/2024 Orders Only [facility] Movement Disorders [address] [facility] 7th [place] [phone] Shantelle Boyer MD Parkinson's disease with dyskinesia and fluctuating manifestations (HCC) (Primary Dx) 09/24/[address] [facility] Home Care Services [address] [place] [address] Gabrielle Mandujano RN 09/13/2024 9:30 AM CDT Office Visit [facility] Medical Group Cardiology [address] [place] [address] Louis Echavarria MD Paroxysmal SVT (supraventricular tachycardia) (Primary Dx); Orthostasis; Parkinson's disease, unspecified whether dyskinesia present, unspecified whether manifestations fluctuate (HCC); Atypical chest pain; Hypothyroidism, unspecified type; Lipid screening 08/27/2024 Telephone [facility] Scheduling [address] [place] [address] Shantelle Boyer MD Scheduling Appointments from Last 3 Months Surgical History Surgery Date Site/Laterality Comments PARTIAL HYSTERECTOMY BACK SURGERY 04/11/2010 - 04/10/2011 TONSILECTOMY, ADENOIDECTOMY, BILATERAL MYRINGOTOMY AND TUBES CHILD KYPHOPLASTY 10/09/2021 - 11/08/2021 HYSTERECTOMY 2008 JOINT REPLACEMENT 2014 SPINE SURGERY 2014 Medical History Medical History Date Comments Other specified disorders of bone density and structure, unspecified site Osteopenia - (Added by TW Conv) Thyroid disease Hypothyroidism Shortness of breath Parkinson disease (HCC) Thyroid disease Arthritis Migraines Osteomyelitis UTI (urinary tract infection) Family History Medical History Relation Name Comments No Known Problems Daughter 1 Emily Tourette syndrome Daughter 2 Mora Parkinsonism Father age greater zarina n 65 Diabetes Mother Katie Heart disease Mother Katie PACEMAKER Mother Katie Stomach cancer Mother Katie Thyroid disease Mother Katie Diabetes Sister Corazon Hypertension Sister Corazon Obesity Son Ralph Broken bones Neg Hx Hip fracture Neg Hx Osteoporosis Neg Hx Scoliosis Neg Hx Relation Name Status Comments Daughter 1 Emily Alive Daughter 2 Mora Alive Father (Age 85) Mother Katie (Age 83) Sister Corazon Alive Son Ralph Alive Social History Tobacco Use Types Packs/Day Years Used Date Smoking Tobacco: Never Smokeless Tobacco: Never Tobacco Cessation:Counseling Given: Not Answered Alcohol Use Standard Drinks/Week Comments No 0 (1 standard drink = 0.6 oz pur e alcohol) Comments Unknown Sex and Gender Information Value Date Recorded Sex Assigned at Not on file Legal Sex Female 10:21 AM HYPOID GEAR GENERATOR Gender Identity Not on file Sexual Orientation Not on file 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 Not on file Not on file Obstetrics History Last Filed Vital Signs Vital Sign Reading Time Taken Comments Blood Pressure 135/81 09/24/2024 7:39 AM CDT Pulse 91 09/24/2024 7:39 AM CDT Temperature - - Respiratory Rate 14 02/18/2023 11:12 AM HYPOID GEAR GENERATOR Oxygen Saturation 96% 09/13/2024 9:32 AM CDT Inhaled Oxygen Concentration - - Weight 77.1 kg (170 lb) 09/24/2024 7:39 AM CDT Height 167.6 cm (5' 6) 09/24/2024 7:39 AM CDT Body Mass Index 27.44 09/24/2024 7:39 AM CDT Plan of Treatment Health Maintenance Due Date Last Done Comments Breast Cancer Screening-Mammogram 1960 Colon Cancer Screening-Colonoscopy 1960 Hepatitis C Screening 1960 DTaP/Tdap/Td Vaccine (1 - Tdap) 1970 Hepatitis B Screening 1977 Pneumococcal vaccine 65+ (1 of 1 - PCV) 2009 Zoster Vaccine (1 of 2) 2009 Covid-19 Vaccine (5 - 2023-2 5 season) 2023 02/15/2022, 05/23/2021, 11/06/2020, Additional history exists Fall Risk Assessment 02/19/2024 02/18/2023 Well Visit 65+ 2024 Influenza Vaccine (#1) 2024 , 01/22/2017, 02/09/2016, Additional history exists Depression Screening 09/24/2025 09/24/2024 Osteoporosis Screening-Bone Density Scan 06/27/2026 06/27/2024, 11/25/2023, 12/26/2012 Procedures Procedure Name Priority Date/Time Associated Diagnosis Comments NM MPI SPECT (REST AND/OR STRESS) MULTIPLE STUDIES Schedule Routine, Read Routine (OP Routine) 10/16/2024 10:41 AM CDT Atypical chest pain POCT LIPID PANEL Routine 09/13/2024 9:33 AM CDT Lipid screening DEXA TBS AXIAL SKELETON BONE DENSITY 1 OR MORE SITES Schedule Routine, Read Routine (OP Routine) 06/27/2024 10:41 AM CDT Age-related osteoporosis without current pathological fracture from Last 3 Months or Most Recently Relevant to Health Maintenance Results * NM MPI SPECT (Rest and/or Stress) Multiple Studies (10/16/2024 10:41 AM CDT) Anatomical Region Laterality Modality Body N/A Electrocardiogra phy 10/16/2024 9:00 AM CDT Narrative 10/16/2024 12:[address] [facility] Medical Group Cardiology [address] [facility] [place] [address], [place] [address] [address] [facility] [address] [place] [address] [address] [address] [place] [address] P:[phone] P:[phone] MPI Imaging Report Patient Name: JAZLYN WILLAMS A : 1960 Study Date: 10/16/2024 9:00:00 AM Gender: F Tech: [facility] Location: [facility] Provider: LOUIS ECHAVARRIA Height(Cm): 167.6 BSA: Weight(Kg): 77.1 Heart Rate: 132 BMI: 27.45 Order Provider: LOUIS ECHAVARRIA PHYSICIAN: Primary Care Physician: Dr. Burrows. [facility] Physician: Danielito Echavarria M.D. Stress Supervision: Carlos Rodgers M.D.,F.A.CElizaCEliza Stress Interpreting Physician: Carlos Rodgers M.D.,Petra Image Interpreting Physician: Carlos Rodgers M.D.,Ayesha. PROCEDURES: Pharmacologic SPECT Report: Myocardial perfusion imaging with Tc99M Sestamibi SPECT at rest and stress post regadenoson (Lexiscan) infusion. INDICATIONS: Family Hx CAD, Palpitations, SVT, and R07.89 Other chest pain. FINDINGS: Procedural Findings: One day rest/stress was used. Tc99m Sestamibi injected IV at rest was 10.8 millicuries 32.5 millicuries of Tc99M Sestamibi injected IV during Lexiscan stress Lexiscan 0.4mg administered IV over 10 seconds. Patient had no symptoms during stress test. Baseline heart rate was 81 BPM Maximum Heart Rate Achieved was: 109 BPM Baseline blood pressure was 124/74 mmHg Post Stress Blood Pressure was 117/55 mmHg Termination: Protocol complete. Resting ECG: Normal sinus rhythm, normal ECG. Post ECG: No diagnostic ST changes. Perfusion Findings: Normal perfusion imaging. No definite fixed or reversible defects. A TID of 0.97 was automatically calculated. LV Function: Global left ventricular function is normal. Left ventricular ejection fraction is 75 %. CONCLUSIONS: Normal sinus rhythm, normal ECG. No diagnostic ST changes. Global left ventricular function is normal. Left ventricular ejection fraction is 75 %. Normal perfusion imaging. No definite fixed or reversible defects. A TID of 0.97 was automatically calculated. Electronically Signed By: Carlos Rodgers MD, [facility] 10/16/2024 12:43:20 PM CDT Electronically Signed By: Carlos Rodgers MD, [facility] 10/16/2024 12:43:20 PM CDT Procedure Note Carlos Rodgers MD - 10/16/2024 [facility] Medical Group Cardiology [address] [place] [address] [address] [address] [facility] [address], [place] [address], [place] [address] P:[phone] P:[phone] MPI Imaging Report Patient Name: JAZLYN WILLAMS A : 1960 Study Date: 10/16/2024 9:00:00 AM Gender: F Tech: [facility] Location: [facility] Provider: LOUIS ECHAVARRIA Height(Cm): 167.6 BSA: Weight(Kg): 77.1 Heart Rate: 132 BMI: 27.45 Order Provider: LOUIS ECHAVARRIA PHYSICIAN: Primary Care Physician: Dr. Burrows. [facility] Physician: Danielito Echavarria M.D. Stress Supervision: Carlos Rodgers M.D.,F.A.C.C. Stress Interpreting Physician: Carlos Rodgers M.D.,F.A.C.C. Image Interpreting Physician: Carlos Rodgers M.D.,F.A.C.C. PROCEDURES: Pharmacologic SPECT Report: Myocardial perfusion imaging with Tc99M Sestamibi SPECT at rest and stresspost regadenoson (Lexiscan) infusion. INDICATIONS: Family Hx CAD, Palpitations, SVT, and R07.89 Other chest pain. FINDINGS: Procedural Findings: One day rest/stress was used. Tc99m Sestamibi injected IV at rest was 10.8 millicuries 32.5 millicuries of Tc99M Sestamibi injected IV during Lexiscan stress Lexiscan 0.4mg administered IV over 10 seconds. Patient had no symptoms during stress test. Baseline heart rate was 81 BPM Maximum Heart Rate Achieved was: 109 BPM Baseline blood pressure was 124/74 mmHg Post Stress Blood Pressure was 117/55 mmHg Termination: Protocol complete. Resting ECG: Normal sinus rhythm, normal ECG. Post ECG: No diagnostic ST changes. Perfusion Findings: Normal perfusion imaging. No definite fixed or reversible defects. A TIDof 0.97 was automatically calculated. LV Function: Global left ventricular function is normal. Left ventricular ejectionfraction is 75 %. CONCLUSIONS: Normal sinus rhythm, normal ECG. No diagnostic ST changes. Global left ventricular function is normal. Left ventricular ejectionfraction is 75 %. Normal perfusion imaging. No definite fixed or reversible defects. A TIDof 0.97 was automatically calculated. Electronically Signed By: Carlos Rodgers MD, [facility] 10/16/2024 12:43:20 PM CDT Electronically Signed By: Carlos Rodgers MD, [facility] 10/16/2024 12:43:20 PM CDT Louis Echavarria MD IMG NM PROCEDURES Final R esult * (ABNORMAL) POCT lipid panel (09/13/2024 9:33 AM CDT) [facility] Signature Cholesterol, POC 200 <200 MG/DL HDL, POC 63 >=40 mg/dL Triglycerides, POC 53 <=149 mg/dL LDL Cholesterol POC 127 <=129 mg/dL Chol/HDL Ratio, POC 2.0 NONE Non-HDL Cholesterol, POC 137 NONE mg/dL Cholesterol Total, POC 200(A) 30 - 199 mg/dL Capillary blood 09/13/2024 9 :33 AM CDT Louis Echavarria MD POINT OF CARE TEST ORDERA BLES Final Result * Dexa TBS Axial Skeleton Bone Density 1 or more sites (06/27/2024 10:41 AM CDT) Anatomical Region Laterality Modality Wrist, Body N/A Radiographic Amy ging Narrative 06/27/2024 1:32 PM CDT Patient Name: Jazlyn Willams Date of : 1960 Date of scan: 06/27/2024 Bone mineral density was performed on a H[employer] Discovery Densitometer. Based on machine cross-calibration and precision studies the least significant changes of this densitometer is 0.024 g/cm2 at the spine, 0.020 g/cm2 at the total proximal femur, and 0.014g/cm2 at the forearm. HISTORY: This is a 64 y.o. postmenopausal female with a history of thyroid disease, vitamin D deficiency, and Parkinson's disease . She reports that she has never smoked. She has never used smokeless tobacco. Currently on treatment with calcium, vitamin D, teriparatide (Forteo), and thyroid hormone and current complaint of arm pain, back pain, and neck pain. INDICATIONS: Menopause status, treatment monitoring, history of prior vertebral fracture, and vitamin D deficiency. FINDINGS: BONE MINERAL DENSITY OF THE PROXIMAL FEMUR Bone Mineral Density (BMD) of the left hip total was found to be 0.901 gm/cm2. This corresponds to a T-score standard deviations from the mean of young adults of -0.3. Femoral neck is 0.739 gm/cm2 with a T-score (standard deviations from the mean of young adults) of -1.0. When compared to the previous study of 11/25/2023 there has been a -0.051 gm/cm (-5.4%) decrease in bone density that is considered significant. BONE MINERAL DENSITY OF THE FOREARM Bone Mineral density (BMD) of the left proximal 1/3 of the radius measures 0.762 gm/cm2. This corresponds to a T-score (standard deviations from the mean of young adults) of 1.1. When compared to the previous study of 11/25/2023 there has been no significant changes in bone density. A forearm bone density study was performed instead of a spine study due to presence of surgical hardware and the presence of vertebroplasty material. SUMMARY: Bone mineral density is near the young adult normal mean with no increased risk for fracture. There has been a significant decrease in bone density since previous measurement. The lumbar spine Trabecular Bone Score TBS was not obtained due to the bone mineral density of the spine not being acquired. ADDITIONAL COMMENTS: Postmenopausal Women and Men Over 50: Diagnostic criteria: Osteoporosis: BMD at or below -2.5 T-score; Osteopenia (low bone mass): BMD between -1.0 and -2.5 T-score. If the patient has a history of a fragility fracture, a fracture that occurred with trauma equivalent to a fall from a standing position or less, then the diagnosis is osteoporosis regardless of bone density. The history and data sections of the bone mineral density scan were prepared by Aster Madden (R)([facility]) who is accredited by the International Society of Clinical Densitometry. The overall patient assessment and scan interpretation were performed by Salima He M.D. who is certified by the International Society of Clinical Densitometry. [id number] Vilma Wilson [facility] DXA PROCEDURES Final Result from Last 3 Months or Most Recently Relevant to Health Maintenance Insurance [employer] [facility] Address: [address] [phone] [employer] [facility]ARE [facility] MEDIC[facility] Address: [address] [phone] Care Teams Sales Representative Leather Goods Relationship Specialty Start Date End Date Robby Burrows MD [address] [place] [address] PCP - General Family Medicine 12/05/17 Otis Méndez MD [address] [id number] Referring Physician Neurology 09/24/24
--- OUTSIDE RECORDS SUMMARY | 2024-11-21 09:45 | XMS_ITS | Clinical Summary ---
Author Organization [facility] Address [address] [place] [address] Care Team Providers Care Clerical Stock Inspector Name Role Phone Robby Burrows MD Primary Care Provider [phone] Allergies No known active allergies Medications carbidopa-levod opa 25-250 MG tablet Take 1 tablet by mouth 3 (three) times daily. 0800, 1200, 1600 12/31/2020 Active SYNTHROID 100 MCG tablet Take 100 mcg by mouth daily. 04/13/2021 Active indomethacin 50 MG capsule Take 50 mg by mouth 3 (three) times daily as needed (pain). 04/13/2021 Active multi vitamin/mineral s tablet Take 1 tablet by mouth daily. Active vitamin B-12 (CYANOCOBALAMIN ) 1000 mcg tablet Take 1,000 mcg by mouth daily. Active ECHINACEA OR Take 1,300 mg by mouth daily. Active vitamin D3, cholecalciferol , 1000 UNIT Tab tablet Take 1,000 Units by mouth daily. Active calcium carb-cholecalci ferol (CALCIUM+D3) 600-800 MG-UNIT tablet Take 1 tablet by mouth daily. Active rOPINIRole (REQUIP) 0.25 MG tablet Take 0.25 mg by mouth 3 (three) times daily. 03/21/2022 Active clobetasol (TEMOVATE) 0.05 % Cream APPLY EVERY WEEK THEN NEEDED FOR FLARE 03/22/2022 Active LORazepam (ATIVAN) 1 MG tabletIndicatio ns:Anxiety Take 1 tablet (1 mg total) by mouth as needed for Anxiety (30 minutes prior to MRI). 1 tablet 1 03/31/2022 Active Active Problems Problem Noted Date Diagnosed Date Back pain 03/29/2022 Family History Medical History Relation Comments Diabetes Father Hypertension Father Parkinson's Disease Father Cancer Mother Hypertension Mother Diabetes Sister Relation Status Comments Father Mother Sister Social History Tobacco Use Types Packs/Day Years Used Date Smoking Tobacco: Never Smokeless Tobacco: Never Tobacco Cessation:Counseling Given: Not Answered Alcohol Use Standard Drinks/Week Comments Never 0 (1 standard drink = 0.6 oz pur e alcohol) AUDIT-C Answer Date Recorded Q1: How often do you have a drink containing alc ohol? Never 08/30/2020 Average Number of Drinks Not on file 021 Frequency of Binge Drinking Not on file 08/10 Comments No Sex and Gender Information Value Date Recorded Sex Assigned at Female 03/29/2022 9:03 PM MANUFACTURING PRODUCTION MANAGER Legal Sex Female 8:31 PM CDT Gender Identity Female 03/29/2022 9:03 PM MANUFACTURING PRODUCTION MANAGER Sexual Orientation Straight 03/29/2022 9: 03 PM MANUFACTURING PRODUCTION MANAGER Last Filed Vital Signs Vital Sign Reading Time Taken Comments Blood Pressure 123/63 03/31/2022 7:37 AM MANUFACTURING PRODUCTION MANAGER Pulse 78 03/31/2022 7:37 AM MANUFACTURING PRODUCTION MANAGER Temperature 36.4 C (97.5 F) 03/31/2022 7:37 AM MANUFACTURING PRODUCTION MANAGER Respiratory Rate 16 03/31/2022 7:37 AM MANUFACTURING PRODUCTION MANAGER Oxygen Saturation 97% 03/31/2022 7:37 AM MANUFACTURING PRODUCTION MANAGER Inhaled Oxygen Concentration - - Weight 92.9 kg (204 lb 12.9 oz) 03/31/2022 4:24 AM MANUFACTURING PRODUCTION MANAGER Height 167.6 cm (5' 6) 03/29/2022 11:1 0 AM MANUFACTURING PRODUCTION MANAGER Body Mass Index 33.06 03/29/2022 11:10 AM MANUFACTURING PRODUCTION MANAGER Plan of Treatment Health Maintenance Due Date Last Done Comments Colorectal Cancer Screening Colonoscopy (10 Years) 1959 Hepatitis C 1977 DTaP, Tdap and Td Vaccines ( 1 - Tdap) 1978 Mammogram Screening 1999 Pneumococcal Vaccine: 50+ Ye ars (1 of 1 - PCV) 2009 Zoster Vaccines (1 of 2) 2009 COVID-19 Vaccine (2023-2 5 season) 2023 Dexa Scan (General) 2024 RSV Immunization or 60+ Years (1 - 1-dose 75+ series) 2034 Meningococcal B Vaccine Aged Out No l onger eligible based on patient's age to complete this topic Meningococcal Vaccine Aged Out No davey nhan eligible based on patient's age to complete this topic RSV Immunizations Under 20 Months Aged Out No longer eligible based on patient's age to complete this topic Goals Goal Patient Goal Type Associated Problems Recent Progress Patient-Stated? Author Health - patient able to perform ADLs independently Lifestyle No Calvin mcclendon, Nikita Rolle, RN Insurance [facility] Advance Directives * Full Code (Latest Code Status on File) Date Activated Date Inactivated Comments 03/29/2022 6:30 PM 03/31/2022 2:42 PM Care Teams Clerical Stock Inspector Relationship Specialty Start Date End Date Robby Burrows MD [address] [place] [id number] PCP - General 07/04/13
== END 2024-11-21 09:40 | disposition home or self-care (01) ==
PROVIDERS: PCP Family Medicine Adolescent Medicine; Visit Provider Nurse Practitioner Family
DX: R11.0 Nausea (principal); K21.9 Gastro-esophageal reflux disease without esophagitis; Z86.19 Personal history of other infectious and parasitic diseases
CPT/HCPCS: 83013